=== PATIENT | female | born 1970 | race Caucasian/White ===

== ENCOUNTER → 2017-02-01 | Outpatient (CLI) | payer BC | LOC: CIMAGING 08:48 | PROVIDERS: ATTEND Family Medicine | DX: Z12.31 Encounter for screening mammogram for malignant neoplasm of breast (principal) | CPT/HCPCS: G0202 ==

== ENCOUNTER → 2018-02-09 | Outpatient (CLI) | payer BC | LOC: CIMAGING 14:44 | DX: Z12.31 Encounter for screening mammogram for malignant neoplasm of breast (principal) ==